=== PATIENT | male | born 1990 | race African-American/Black ===

== ENCOUNTER 2018-07-01 15:19 | Emergency (ER) | payer OTHER ==
[~2018-07-01] VITALS: Ht 175.3 cm; Wt 80.0 kg
[2018-07-01] MEDS ORDERED: DIVA125T2 PO (15:26)
[2018-07-01] MEDS ORDERED: SODIUM CHLORIDE 0.9% 1,000 ML IV ONE (16:28)
[2018-07-01] MEDS ORDERED: LEVETIRACETAM 500MG PREMIX 100 ML IV ONE (16:30)
[2018-07-01 17:09] LABS: BASOPHILS % 0.4 % (0.0-2.0); EOSINOPHILS % 1.4 % (0.0-5.0); HEMATOCRIT. 39.3 % (42.0-52.0); HEMOGLOBIN. 13.1 g/dL (14.0-18.0); LYMPHOCYTES % 13.1 % (20.0-50.0); MEAN CORPUSCULAR HEMOGLOBIN 31.2 pg (28.0-32.0); MEAN CORPUSCULAR VOLUME 93.9 fL (80.0-94.0); MEAN PLATELET VOLUME 10.1 fl (7.4-10.4); MONOCYTES % 8.6 % (2.0-8.0); NEUTROPHILS % 76.5 % (40.0-76.0); PLATELET 131 x1000/uL (130-400); RED BLOOD CELL COUNT 4.19 mill/uL (4.7-6.1); RED CELL DISTRIBUTION WIDTH 14.1 % (11.6-14.6)
[2018-07-01 17:21] LABS: CHLORIDE 109 mEq/L (98-107)
[2018-07-01 17:25] LABS: ETHANOL BLOOD < 10 mg/dL
[2018-07-01] MEDS ORDERED: VALPROATE SODIUM 500 MG in SODIUM CHLORIDE 0.9% 100 ML IV SCH (19:15)
[2018-07-01 22:13] VITALS: BP 87/51
== END 2018-07-01 22:16 | disposition home or self-care (01) ==
LOC: ER 15:19
DX: G40.909 Epilepsy, unspecified, not intractable, without status epilepticus (principal); I10 Essential (primary) hypertension; Z91.14 Patient's other noncompliance with medication regimen
CPT/HCPCS: 36415; 80053; 80165; 85025; 96365; 96366; 96367; 99283; G0482; J1953; J3490; J7030; J7050